=== PATIENT | male | born 1980 | race Caucasian/White ===

== ENCOUNTER 2018-09-16 11:51 | Emergency (ER) | payer BC, MEDICAID ==
[~2018-09-16] VITALS: Ht 182.9 cm; Wt 68.0 kg
--- NOTE | 2018-09-16 12:15 | NUR ---
Dr Freitas is at bedside doing the MSE.
[2018-09-16] MEDS ORDERED: LORAZEPAM 2 MG/1 ML VIAL IV ONE ×2 (12:30→14:45)
[2018-09-16] MEDS ORDERED: IV NORMAL SALINE 1000 ML BAG IV ONE (12:30)
[2018-09-16] MEDS ORDERED: LORAZEPAM 2 MG/1 ML VIAL ONE ×2 (12:33→14:44)
[2018-09-16 12:41] LABS: BASOPHILS % (AUTO) 0.7 % (0.0-2.0); EOSINOPHILS # (AUTO) 0.1 K/uL (0.0-0.7); EOSINOPHILS % (AUTO) 1.3 % (0.0-7.0); HEMATOCRIT 45.3 % (36.7-47.1); HEMOGLOBIN 15.6 g/dL (12.5-16.3); LYMPHOCYTES # (AUTO) 2.7 K/uL (20.0-40.0); LYMPHOCYTES % (AUTO) 44.1 % (20.5-51.5); MEAN CORPUSCULAR HEMOGLOBIN 31.7 uug (23.8-33.4); MEAN CORPUSCULAR HGB CONC 34 g/dL (32.5-36.3); MEAN CORPUSCULAR VOLUME 92.2 fL (73.0-96.2); MONOCYTES # (AUTO) 0.9 K/uL (2.0-10.0); MONOCYTES % (AUTO) 14.6 % (0.0-11.0); NEUTROPHILS # (AUTO) 2.4 K/uL (1.8-8.9); NEUTROPHILS % (AUTO) 39.3 % (38.5-71.5); PLATELET COUNT (AUTO) 237 K/uL (152-348); RED BLOOD CELL COUNT(AUTO) 4.91 MIL/uL (4.06-5.63); WHITE BLOOD COUNT (AUTO) 6.1 K/uL (3.6-10.2)
[2018-09-16 12:48] LABS: CREATININE 0.9 mg/dL (0.6-1.3); POTASSIUM 4.5 mmol/L (3.5-5.1)
--- NOTE | 2018-09-16 12:52 | NUR ---
Eduardo's mother is at bedside. Patient is resting comfortably in bed with eyes closed. PATIENT IS PAIN FREE AT THIS TIME.
[2018-09-16 12:54] LABS: *AMPHETAMINE, URINE POSITIVE (NEGATIVE); *BARBITURATE, URINE NEGATIVE (NEGATIVE); *CANNABINOID, URINE NEGATIVE (NEGATIVE); *COCCAINE, URINE NEGATIVE (NEGATIVE); *OPIATE, URINE NEGATIVE (NEGATIVE); *PHENCYCLIDINE SCREEN,URINE NEGATIVE (NEGATIVE)
[2018-09-16 13:01] LABS: BILIRUBIN,DIRECT 0.1 mg/dL (0.0-0.2); BILIRUBIN,TOTAL 0.8 mg/dL (0.2-1.0); TOTAL PROTEIN, SERUM 7.9 g/dL (6.4-8.2)
--- NOTE | 2018-09-16 14:11 | NUR ---
Call received from patient's, reported, spring encaser/therapist requesting further information. ERMD speaking with them via telephone.
[2018-09-16] MEDS ORDERED: ONDANSETRON 4 MG/2 ML VIAL IV ONE (14:15)
[2018-09-16] MEDS ORDERED: ONDANSETRON 4 MG/2 ML VIAL ONE (14:17)
--- NOTE | 2018-09-16 15:15 | NUR ---
Patient denies nausea, eating sandwich & juice with good appetite, NAD.
--- NOTE | 2018-09-16 15:25 | NUR ---
Franck Combs is now at bedside evluating this patient.
--- NOTE | 2018-09-16 15:45 | NUR ---
Patient wants [facility]. Dr Freitas notified.
--- NOTE | 2018-09-16 16:08 | NUR ---
A list of psych clinics & doctors was given to patient and family.
--- NOTE | 2018-09-16 16:09 | NUR ---
IV removed. Catheter intact and site benign. Pressure and 4x4 gauze applied to site. No bleeding noted. Patient discharged to home in stable conditon with brisk steady gait. Written and verbal after care instructions given to patient and patient's mother. Patient and patient's mother verbalized understandin & complaince of instructions.
[2018-09-16 16:10] VITALS: BP 119/80
== END 2018-09-16 16:13 | disposition home or self-care (01) ==
LOC: ER 11:51
DX: F15.10 Other stimulant abuse, uncomplicated (principal); L08.9 Local infection of the skin and subcutaneous tissue, unspecified; F32.9 Major depressive disorder, single episode, unspecified; F17.200 Nicotine dependence, unspecified, uncomplicated
CPT/HCPCS: 36415; 71045; 80048; 80076; 80307; 83880; 84484; 85025; 85379; 85730; 93005; 96374; 96375; 96376; 99284; G0480; J2060 ×2; J2405; 70030-TC; A4663; J7030

== ENCOUNTER 2019-05-20 15:25 | Emergency (ER) | payer BC, MEDICAID ==
[~2019-05-20] VITALS: Ht 185.4 cm; Wt 67.1 kg
--- NOTE | 2019-05-20 15:30 | NUR ---
Patient said that he took fake drugs and fake amphetamines from the street and now he is feeling extremely anxious & "dry", respiration: easy, nonlabored, skin warm & dry
--- NOTE | 2019-05-20 15:40 | NUR ---
Patient is AOx4, "I want IV fluids and IV ativan." per patient's verbalization. Patient's mother said , "He is dehydrated." Comfort and safety measures maintained, pending MD evaluation. Mother is at bedside.
[2019-05-20 16:07] LABS: *BILIRUBIN,URIN NEGATIVE (NEGATIVE); *BLOOD, URINE NEGATIVE (NEGATIVE); *CLARITY,URINE CLEAR (CLEAR); *COLOR,URINE YELLOW (YELLOW); *KETONES,URINE NEGATIVE (NEGATIVE); *UROBILINOGEN,URINE 0.2 E.U./dl (NORMAL); LEUKOCYTE ESTERASE ,URINE NEGATIVE (NEGATIVE); NITRITE, URINE NEGATIVE (NEGATIVE); PH,URINE 6.5 (5.0-8.0); UGLUCOSE NEGATIVE (NEGATIVE)
[2019-05-20 16:13] LABS: EOSINOPHILS # (AUTO) 0.1 K/uL (0.0-0.7); EOSINOPHILS % (AUTO) 1.3 % (0.0-7.0); LYMPHOCYTES # (AUTO) 2.4 K/uL (20.0-40.0)
[2019-05-20 16:17] LABS: BASOPHILS % (AUTO) 0.5 % (0.0-2.0); HEMATOCRIT 46.4 % (36.7-47.1); HEMOGLOBIN 16.4 g/dL (12.5-16.3); LYMPHOCYTES % (AUTO) 43.1 % (20.5-51.5); MEAN CORPUSCULAR HEMOGLOBIN 32.5 uug (23.8-33.4); MEAN CORPUSCULAR HGB CONC 35 g/dL (32.5-36.3); MEAN CORPUSCULAR VOLUME 91.9 fL (73.0-96.2); MONOCYTES # (AUTO) 0.9 K/uL (2.0-10.0); MONOCYTES % (AUTO) 16.2 % (0.0-11.0); NEUTROPHILS # (AUTO) 2.2 K/uL (1.8-8.9); NEUTROPHILS % (AUTO) 38.9 % (38.5-71.5); PLATELET COUNT (AUTO) 301 K/uL (152-348); RED BLOOD CELL COUNT(AUTO) 5.05 MIL/uL (4.06-5.63); WHITE BLOOD COUNT (AUTO) 5.7 K/uL (3.6-10.2)
[2019-05-20 16:21] LABS: CARBON DIOXIDE 31 mmol/L (21-32); CHLORIDE 96 mmol/L (98-107); CREATININE 0.9 mg/dL (0.6-1.3); GLUCOSE 89 mg/dL (74-106); POTASSIUM 4.3 mmol/L (3.5-5.1); UREA NITROGEN, BLOOD 10 mg/dL (7-18)
[2019-05-20 16:26] LABS: ALANINE AMINOTRANSFERASE 24 U/L (16-63); ALKALINE PHOSPHATASE 41 U/L (50-136); ASPARTATE AMINOTRANSFERASE 23 U/L (15-37); BILIRUBIN,DIRECT 0.2 mg/dL (0.0-0.2); TOTAL PROTEIN, SERUM 8.3 g/dL (6.4-8.2)
[2019-05-20 16:29] LABS: ACETAMINOPHEN < 2.0 ug/mL (10-30); ETHANOL < 3 MG/DL (0-0)
[2019-05-20 16:30] LABS: *AMPHETAMINE, URINE POSITIVE (NEGATIVE); *BARBITURATE, URINE NEGATIVE (NEGATIVE); *CANNABINOID, URINE NEGATIVE (NEGATIVE); *COCCAINE, URINE NEGATIVE (NEGATIVE); *OPIATE, URINE NEGATIVE (NEGATIVE); *PHENCYCLIDINE SCREEN,URINE NEGATIVE (NEGATIVE)
[2019-05-20 17:14] LABS: BAND % (MANUAL) 2 % (0-10); NEUTROPHILS % (MANUAL) 37 % (42-75)
[2019-05-20 17:15] LABS: EOSINOPHILS % (MANUAL) 3 % (0-8); LYMPHOCYTES % (MANUAL) 44 % (20-40); MONOCYTES % (MANUAL) 14 % (2-10)
[2019-05-20] MEDS ORDERED: LORAZEPAM 2 MG/1 ML VIAL ONE ×2 (17:21→20:15)
[2019-05-20] MEDS ORDERED: ALBUTEROL SULFATE 2.5 MG/3 ML NEBU ONE (17:27)
[2019-05-20] MEDS ORDERED: IPRATROPIUM BROMIDE 0.5 MG/2.5 ML NEBU ONE (17:27)
[2019-05-20] MEDS ORDERED: IPRATROPIUM BROMIDE 0.5 MG/2.5 ML NEBU NEB ONE (17:30)
[2019-05-20] MEDS ORDERED: IV NORMAL SALINE 1000 ML BAG IV ONE ×2 (17:30→20:00)
[2019-05-20] MEDS ORDERED: LORAZEPAM 2 MG/1 ML VIAL IV ONE ×2 (17:30→20:00)
[2019-05-20] MEDS ORDERED: ALBUTEROL SULFATE 2.5 MG/3 ML NEBU NEB ONE (17:30)
--- NOTE | 2019-05-20 17:37 | NUR ---
Crisis social media executive Claritza is here & evaluating the patient.
--- NOTE | 2019-05-20 18:07 | NUR ---
Patient is medically cleared by Dr Elise.
--- NOTE | 2019-05-20 18:19 | NUR ---
Patient will be transferred to a psych facility/hospital per crisis social work supervisor Claritza Nix, pending acceptance
--- NOTE | 2019-05-20 19:08 | NUR ---
still for transfer to [facility], endorsed to JOHN Paniagua accordingly
--- NOTE | 2019-05-20 19:28 | NUR ---
Magaly taylor from [facility] called with transfer info. Patient will be going to [address] and accepting MD is DR Jefferson. Call for report is .
--- NOTE | 2019-05-20 19:39 | NUR ---
Called [facility] for transfer. ETA is 90mins. Trip #[id number].
--- NOTE | 2019-05-20 19:55 | NUR ---
Magaly from [facility] call back. Magaly states they are unable to take patient.
[2019-05-20] MEDS ORDERED: ONDANSETRON 4 MG/2 ML VIAL IV ONE (20:00)
--- NOTE | 2019-05-20 20:03 | NUR ---
Óscar Called Back to instruct to Faxe facesheet to [facility] .
[2019-05-20] MEDS ORDERED: ONDANSETRON 4 MG/2 ML VIAL ONE (20:14)
--- NOTE | 2019-05-20 20:30 | NUR ---
Patient tolerated Dinner.
--- NOTE | 2019-05-20 21:00 | NUR ---
Viji taylor for [facility] called back to give transfer info. [address] be [address] [facility] [address] Accepting MD is Dr Alfaro. Call for report .
--- NOTE | 2019-05-20 21:27 | NUR ---
Faxed facesheet and summary to [facility] [phone] as mother requested.
--- NOTE | 2019-05-20 22:03 | NUR ---
Viji from [facility] called with room infor. Patient will be going [address] ETA for ambulance warp picker is [id number].
--- NOTE | 2019-05-20 23:16 | NUR ---
IV removed. Catheter intact and site benign. Pressure and 4x4 gauze applied to site. No bleeding noted.
--- NOTE | 2019-05-20 23:17 | NUR ---
Gave SBAR report to [facility] [address] who will take patient to [facility].
--- NOTE | 2019-05-20 23:25 | NUR ---
Gave SBAR report to Angie nurse from [facility].
== END 2019-05-20 23:27 | disposition short-term general hospital (02) ==
LOC: ER 15:27
DX: F15.259 Other stimulant dependence with stimulant-induced psychotic disorder, unspecified (principal); R45.851 Suicidal ideations; J98.01 Acute bronchospasm; E87.1 Hypo-osmolality and hyponatremia; D64.9 Anemia, unspecified; F32.9 Major depressive disorder, single episode, unspecified; F17.200 Nicotine dependence, unspecified, uncomplicated; F10.10 Alcohol abuse, uncomplicated; Y90.9 Presence of alcohol in blood, level not specified
CPT/HCPCS: 36415; 71045; 80048; 80076; 80307; 81001; 83690; 84484; 85007; 85025; 93005; 94640; 96374; 96376; 99285; G0480 ×2; G0481; J2060 ×2; J2405; 70030-TC; A4663; J3590; J7030

== ENCOUNTER 2019-09-07 09:51 | Emergency (ER) | payer BC, MEDICAID ==
[~2019-09-07] VITALS: Ht 182.9 cm; Wt 68.0 kg
--- NOTE | 2019-09-07 10:08 | NUR ---
[email or web address], medical screening exam in progress
[2019-09-07] MEDS ORDERED: IV NORMAL SALINE 1000 ML BAG IV ONE ×2 (10:15→12:00)
[2019-09-07] MEDS ORDERED: LORAZEPAM 0.5 MG TABLET PO ONE (10:15)
[2019-09-07] MEDS ORDERED: ONDANSETRON 4 MG/2 ML VIAL IV ONE (10:15)
[2019-09-07] MEDS ORDERED: LORAZEPAM 1 MG TABLET ONE (10:18)
[2019-09-07] MEDS ORDERED: ONDANSETRON 4 MG/2 ML VIAL ONE (10:18)
[2019-09-07 10:31] LABS: BASOPHILS % (AUTO) 0.8 % (0.0-2.0); EOSINOPHILS % (AUTO) 1.1 % (0.0-7.0); HEMATOCRIT 46.7 % (36.7-47.1); HEMOGLOBIN 16.4 g/dL (12.5-16.3); LYMPHOCYTES % (AUTO) 48.5 % (20.5-51.5); MEAN CORPUSCULAR HEMOGLOBIN 32.4 uug (23.8-33.4); MEAN CORPUSCULAR HGB CONC 35 g/dL (32.5-36.3); MEAN CORPUSCULAR VOLUME 92.3 fL (73.0-96.2); MONOCYTES # (AUTO) 0.7 K/uL (2.0-10.0); MONOCYTES % (AUTO) 18.1 % (0.0-11.0); NEUTROPHILS # (AUTO) 1.3 K/uL (1.8-8.9); NEUTROPHILS % (AUTO) 31.5 % (38.5-71.5); PLATELET COUNT (AUTO) 277 K/uL (152-348); RED BLOOD CELL COUNT(AUTO) 5.06 MIL/uL (4.06-5.63); WHITE BLOOD COUNT (AUTO) 4.1 K/uL (3.6-10.2)
[2019-09-07 10:33] LABS: *BLOOD, URINE NEGATIVE (NEGATIVE); *CLARITY,URINE CLEAR (CLEAR); *COLOR,URINE YELLOW (YELLOW); *KETONES,URINE TRACE (NEGATIVE); *UROBILINOGEN,URINE 0.2 E.U./dl (NORMAL); LEUKOCYTE ESTERASE ,URINE NEGATIVE (NEGATIVE); NITRITE, URINE NEGATIVE (NEGATIVE); PH,URINE 6.5 (5.0-8.0); UGLUCOSE NEGATIVE (NEGATIVE)
[2019-09-07 10:36] LABS: *BILIRUBIN,URIN 1+ (NEGATIVE)
[2019-09-07 10:40] LABS: BACTERIA,URINE NONE SEEN /HPF (NONE SEEN); MUCUS,URINE FEW /LPF (0-FEW); RBC,URINE 0-3 /HPF (0-3); SQUAMOUS EPITHELIAL CELL,UR FEW /HPF (NONE SEEN); URINE AMORPHOUS URATE FEW /HPF
[2019-09-07 10:46] LABS: ETHANOL < 3 MG/DL (0-0)
[2019-09-07 10:49] LABS: CARBON DIOXIDE 29 mmol/L (21-32); CHLORIDE 96 mmol/L (98-107); CREATININE 1.2 mg/dL (0.6-1.3); GLUCOSE 93 mg/dL (74-106); POTASSIUM 4.2 mmol/L (3.5-5.1); UREA NITROGEN, BLOOD 11 mg/dL (7-18)
[2019-09-07 10:51] LABS: *AMPHETAMINE, URINE POSITIVE (NEGATIVE); *BARBITURATE, URINE NEGATIVE (NEGATIVE); *CANNABINOID, URINE NEGATIVE (NEGATIVE); *COCCAINE, URINE NEGATIVE (NEGATIVE); *OPIATE, URINE NEGATIVE (NEGATIVE); *PHENCYCLIDINE SCREEN,URINE NEGATIVE (NEGATIVE)
[2019-09-07 10:54] LABS: ALANINE AMINOTRANSFERASE 23 U/L (16-63); ALKALINE PHOSPHATASE 42 U/L (50-136); ASPARTATE AMINOTRANSFERASE 22 U/L (15-37); BILIRUBIN,DIRECT 0.4 mg/dL (0.0-0.2); BILIRUBIN,TOTAL 1.7 mg/dL (0.2-1.0)
[2019-09-07 10:55] LABS: ACETAMINOPHEN < 2.0 ug/mL (10-30)
[2019-09-07 10:58] LABS: LYMPHOCYTES % (MANUAL) 51 % (20-40); METAMYELOCYTES % 3 % (0-1); MONOCYTES % (MANUAL) 13 % (2-10); NEUTROPHILS % (MANUAL) 33 % (42-75)
[2019-09-07 11:02] LABS: THYROID STIMULATING HORMONE 1.028 mIU/mL (0.358-3.740)
--- NOTE | 2019-09-07 11:05 | NUR ---
Medically cleared by Dr Burns for psych evaluation. Clinical scaffold worker was contacted.
--- NOTE | 2019-09-07 12:48 | NUR ---
Lunch [email or web address]
--- NOTE | 2019-09-07 14:46 | NUR ---
1445pm: ER medical records and facesheet faxed to [facility] facility per Bhakti's instructions, pending callback@this time
--- NOTE | 2019-09-07 15:22 | NUR ---
Patient and Dr Burns notified re: no beds available in [place] today.
--- NOTE | 2019-09-07 16:24 | NUR ---
Patient discharged to home in stable condition & brisk steady gait. Written and verbal after care instructions given to patient. Patient verbalizes understanding & compliance of instructions. Stressed follow up or return to ER for worsening s/s.
== END 2019-09-07 16:25 | disposition home or self-care (01) ==
LOC: ER 09:51
DX: F15.10 Other stimulant abuse, uncomplicated (principal); F10.10 Alcohol abuse, uncomplicated; Y90.0 Blood alcohol level of less than 20 mg/100 ml; R45.851 Suicidal ideations
CPT/HCPCS: 36415; 80048; 80076; 80307 ×2; 80329; 81001; 84443; 85025; 96361; 96374; 99285; G0480; J2405; 70030-TC; A4663; J7030

== ENCOUNTER 2020-11-17 17:08 | Emergency (ER) | payer BC, MEDICAID ==
--- NOTE | 2020-11-17 17:19 | NUR ---
PT ASKED FOR A MALE DOCTOR TO SEE HIM WHEN HE FOUND OUT THAT WE HAD A FEMALE MD ON DUTY - DECIDED TO COME BACK AFTER 7PM.
[2020-11-17] MEDS ORDERED: LIDOCAINE HCL 2% 20 ML VIAL ONE (20:18)
[2020-11-17] MEDS ORDERED: CEFTRIAXONE 500 MG VIAL ONE (20:18)
[2020-11-17] MEDS ORDERED: AZITHROMYCIN 250 MG TABLET ONE (20:19)
== END 2020-11-17 17:30 | disposition left against medical advice (07) ==
LOC: ER 17:09
DX: Z53.21 Procedure and treatment not carried out due to patient leaving prior to being seen by health care provider (principal)
CPT/HCPCS: J0696; J3490; J7030; Q0144

== ENCOUNTER 2020-11-17 19:08 | Emergency (ER) | payer BC, OTHER ==
[~2020-11-17] VITALS: Ht 182.9 cm; Wt 63.5 kg
[2020-11-17] MEDS: CEFTRIAXONE 500 MG VIAL IM ONE ×2 (19:30→20:05)
[2020-11-17] MEDS ORDERED: IV NS 1000 ML 1,000 ML IV ONE (19:30)
[2020-11-17] MEDS ORDERED: AZITHROMYCIN 250 MG TABLET PO ONE (19:30)
[2020-11-17 19:40] LABS: *BILIRUBIN,URIN NEGATIVE (NEGATIVE); *BLOOD, URINE NEGATIVE (NEGATIVE); *CLARITY,URINE CLEAR (CLEAR); *COLOR,URINE YELLOW (YELLOW); *KETONES,URINE NEGATIVE (NEGATIVE); *UROBILINOGEN,URINE 0.2 E.U./dl (NORMAL); LEUKOCYTE ESTERASE ,URINE NEGATIVE (NEGATIVE); NITRITE, URINE NEGATIVE (NEGATIVE); UGLUCOSE NEGATIVE (NEGATIVE)
[2020-11-17 20:22] LABS: MEAN CORPUSCULAR HEMOGLOBIN 32.4 uug (23.8-33.4); MEAN CORPUSCULAR VOLUME 90.4 fL (73.0-96.2); PLATELET COUNT (AUTO) 260 K/uL (152-348)
[2020-11-17 20:28] LABS: CREATININE 0.8 mg/dL (0.6-1.3); POTASSIUM 3.7 mmol/L (3.5-5.1)
[2020-11-17 20:33] LABS: BILIRUBIN,DIRECT 0.1 mg/dL (0.0-0.2); BILIRUBIN,TOTAL 0.5 mg/dL (0.2-1.0); TOTAL PROTEIN, SERUM 6.9 g/dL (6.4-8.2)
[2020-11-17] MEDS ORDERED: PENICILLIN G BENZATHINE 2.4 MMU/4 ML DISP.SYRIN IM ONE ×2 (21:00→21:17)
--- NOTE | 2020-11-17 22:08 | NUR ---
PT WAS EVALUATED BY DR PORTILLO. PT WAS D/C'd TO HOME AFTER DR PORTILLO RE-EVALUATION. D/C INSTRUCTIONS GIVEN TO THE PT BY DR PORTILLO.
[2020-11-17 22:12] VITALS: BP 132/78
[2020-11-21 15:59] LABS: *GC NAA Negative; *TRIC.VAG. NAA Negative
== END 2020-11-17 22:53 | disposition home or self-care (01) ==
LOC: ER 19:15
DX: R53.1 Weakness (principal); N48.9 Disorder of penis, unspecified; F15.10 Other stimulant abuse, uncomplicated; R94.31 Abnormal electrocardiogram [ECG] [EKG]
CPT/HCPCS: 36415; 80048; 80076; 81003; 83690; 85007; 85025; 86592; 87491; 93005; 96360; 96372 ×2; 99284; J0696; J3490; 70030-TC; A4663; J7030; Q0144